=== PATIENT | male | born 1955 | race American Indian/Alaskan Native ===

== ENCOUNTER 2019-09-24 08:24 | Outpatient (CLI) | payer MEDICAID ==
--- NOTE | 2019-09-24 10:02 | Cat Scan Report ---
CT abdomen pelvis wo con INDICATION: MALIGNANT NEOPLASM PROSTATE. TECHNIQUE: All CT scans at this location are performed using the following dose modulation technique: Automated exposure control. Helical slices were obtained through the abdomen and pelvis. COMPARISON: None available. FINDINGS: Abdomen: There is mild atelectasis or scar in the right lung base. The liver, spleen, pancreas, adren al glands, and small bowel show no acute abnormality. There is a 14 mm cyst in the mid left kidney an d a 3.3 cm cyst in the mid right kidney. There are small retroperitoneal lymph nodes. These are not p athologically enlarged. The aorta is normal in diameter. Pelvis: The appendix is unremarkable. There is no obstruction or inflammation. There are iliac chain nodes are mildly prominent. There is a right external iliac chain node which measures 1 cm in the price rt axis. There is a distal right external iliac chain node which measures 16 mm. On review of bone windows, no acute osseous abnormalities are seen. IMPRESSION: 1. There are nonspecific right external iliac chain nodes. No suspicious osseous abnormalities are seen. There are simple cysts in the kidneys. Signer Name: Ramírez Styles MD Signed: 09/24/2019 9:57 AM Workstation Name: [id number]
--- NOTE | 2019-09-24 12:24 | Nuclear Medicine Report ---
NUCLEAR MEDICINE BONE SCAN, WHOLE BODY INDICATION: MALIGNANT NEOPLASM OF PROSTATE. TECHNIQUE: 25 mCi of Tc-99m MDP were injected IV. Whole body images were obtained. COMPARISON: CT abdomen pelvis without contrast performed the same day. FINDINGS: Skeletal Structures: Fairly symmetric, likely degenerative uptake is present involving the shoulders , wrists, spine and knees.. Skeletal Lesions: None. Soft Tissues: Normal. Kidneys: Normal, symmetric activity. Additional Findings: None. IMPRESSION: No evidence for osseous metastasis on bone scan.. Signer Name: Pankaj Aviles Jr, MD Signed: 09/24/2019 12:20 PM Workstation Name: [id number]
== END 2019-09-24 08:25 | disposition home or self-care (01) ==
LOC: NM 08:24
PROVIDERS: ATTEND Urology
DX: N28.1 Cyst of kidney, acquired (principal); N40.2 Nodular prostate without lower urinary tract symptoms; C61 Malignant neoplasm of prostate
CPT/HCPCS: 74176; 78306; A9503

== ENCOUNTER 2020-06-22 08:47 | Outpatient (CLI) | payer MEDICAID ==
--- NOTE | 2020-06-22 10:23 | Cat Scan Report ---
CT ABDOMEN AND PELVIS WITHOUT CONTRAST HISTORY: Prostate cancer COMPARISON: 09/24/2019 TECHNIQUE: Axial CT images were obtained through the abdomen and pelvis without IV contrast. Sagittal and coronal reformatted images. All CT scans at this location are performed using CT dose reduction for ALARA by means of automated exposure control. FINDINGS: CT ABDOMEN: Lung Bases: Clear. Liver: No significant abnormality. Biliary: No significant abnormality. Spleen: No significant abnormality. Unenlarged. Pancreas: No significant abnormality. Adrenals: No significant abnormality. Kidneys: Small simple appearing bilateral renal cysts appear stable. Lymphatics: No lymphadenopathy. Vasculature: No significant abnormality. Bowel/Peritoneum: No significant abnormality. No free air. No free fluid. Normal appendix. CT PELVIS: : No significant abnormality. Osseous Structures: No suspicious bony lesions are detected. Additional Findings: None IMPRESSION: No evidence for metastatic disease in the abdomen or pelvis. Stable findings since 09/24/2019. Signer Name: Pankaj Aviles Jr, MD Signed: 06/22/2020 10:19 AM Workstation Name: [id number]
--- NOTE | 2020-06-22 12:53 | Nuclear Medicine Report ---
NUCLEAR MEDICINE BONE SCAN, WHOLE BODY INDICATION: PROSTATE CANCER. TECHNIQUE: 25.5 mCi of Tc-99m MDP were injected IV. Whole body images were obtained. COMPARISON: CT abdomen and pelvis performed the same day. Bone scan dated 09/24/2019.. FINDINGS: Skeletal Structures: Fairly symmetric, likely degenerative uptake is present involving the shoulders , wrists and knees.. Skeletal Lesions: None. Soft Tissues: Normal. Kidneys: Normal, symmetric activity. Additional Findings: None. IMPRESSION: No evidence for osseous metastasis. Stable findings since 09/24/2019.. Signer Name: Pankaj Aviles Jr, MD Signed: 06/22/2020 12:48 PM Workstation Name: [id number]
== END 2020-06-22 08:48 | disposition home or self-care (01) ==
LOC: NM 08:47
PROVIDERS: ATTEND Internal Medicine Hematology & Oncology
DX: C90.00 Multiple myeloma not having achieved remission (principal); C90.31 Solitary plasmacytoma in remission; N28.1 Cyst of kidney, acquired
CPT/HCPCS: 74176; 78306; A9503

== ENCOUNTER 2020-08-08 06:43 | Outpatient (CLI) | payer MEDICAID ==
[2020-08-08] MEDS ORDERED: ONDANSETRON 4 MG/2 ML INJ IV ONE (07:20)
[2020-08-08] MEDS ORDERED: HYDROmorphone 1 MG/1 ML INJ IV ONE ×2 (07:21→10:01)
[2020-08-08 07:37] LABS: Basophils % (Auto) 0.6 % (0.0-1.8); Eosinophils # (Auto) 0.1 K/mm3 (0.0-0.4); Eosinophils % (Auto) 1.8 % (0.0-4.3); Hemoglobin 13.5 gm/dl (11.8-15.2); Lymphocytes # (Auto) 0.6 K/mm3 (1.2-5.4); Mean Corpuscular HGB Conc 35 % (32-34); Mean Corpuscular Volume 92 fl (84-94); Monocytes # (Auto) 0.8 K/mm3 (0.0-0.8); Monocytes % (Auto) 15.3 % (0.0-7.3); Platelet Count 191 K/mm3 (140-440); Red Blood Count 4.22 M/mm3 (3.65-5.03); Red Cell Distribution Width 12.3 % (13.2-15.2)
[2020-08-08 07:48] LABS: INR 0.97 (0.87-1.13)
[2020-08-08 07:49] LABS: Partial Thromboplastin Time 31.2 Sec. (24.2-36.6)
[2020-08-08] MEDS ORDERED: SODIUM CHLORIDE 0.9% 500 ML 500 ML IV SCH (08:00)
--- NOTE | 2020-08-08 10:34 | Cat Scan Report ---
CT-GUIDED BONE MARROW ASPIRATION AND BIOPSY INDICATION : Multiple myeloma PROCEDURE: The risks (including but not limited to bleeding and infection) and benefits were explain ed to the patient and informed consent was obtained. All CT examinations performed at this facility utilize dose modulation, iterative reconstruction or weight-based dosing, when appropriate, to reduce radiation dose to as low as reasonably achievable. A time out procedure was performed. The procedu re site was prepped and draped in the usual sterile fashion and lidocaine was used for local anesthes ia. Under CT guidance, the right posterior iliac wing was selected for biopsy. An 11 gauge needle was ad vanced to the posterior margin of the iliac wing, cortex breached, and 4.5 mL bone marrow aspirate ob tained. The needle was then advanced and a bone marrow biopsy was obtained measuring approximately 2 cm. Samples were given directly to the warehousing technician who was present during the exam. The patient tolerated the procedure well with no complications. IMPRESSION: Technically successful bone marrow aspirate and biopsy. Signer Name: Pankaj Aviles Jr, MD Signed: 08/08/2020 10:30 AM Workstation Name: [id number]
[2020-08-08 11:07] VITALS: BP 125/70
[2020-08-08 14:03] LABS: Large Platelets Few; Platelet Estimate Consistent w Auto; RBC Morphology Normal; Total Cells Counted 100
== END 2020-08-08 11:45 | disposition home or self-care (01) ==
LOC: CATHLABREC 06:43
PROVIDERS: ATTEND Internal Medicine Hematology & Oncology
DX: C90.00 Multiple myeloma not having achieved remission (principal); K21.9 Gastro-esophageal reflux disease without esophagitis; E11.9 Type 2 diabetes mellitus without complications; Z91.041 Radiographic dye allergy status; Z79.899 Other long term (current) drug therapy; Z79.4 Long term (current) use of insulin; Z87.891 Personal history of nicotine dependence; Z85.46 Personal history of malignant neoplasm of prostate; Z98.890 Other specified postprocedural states; Z83.3 Family history of diabetes mellitus
CPT/HCPCS: 36415; 38222; 77012; 85025; 85097; 85610; 85730; 88161; 88305; 88311; 88313; J1170; J2405; 38221; 85007; J7040

== ENCOUNTER 2021-09-26 15:03 | Outpatient (CLI) | payer MEDICARE ==
--- NOTE | 2021-09-26 18:20 | XRay Report ---
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 FINDINGS: BONES AND JOINTS: No suspicious lucent or lytic lesion. No other acute abnormality. There is mild cer vical and thoracic spondylosis. There is mild osteoarthritis of the hips and the right knee. SOFT TISSUES: No acute abnormality. ADDITIONAL FINDINGS: None. IMPRESSION: 1. No radiographic evidence of bone lesions concerning for malignancy. Signer Name: Hector Vásquez MD Signed: 09/26/2021 6:16 PM Workstation Name: [id number]
== END 2021-09-26 15:04 | disposition home or self-care (01) ==
LOC: XRAY 15:03
PROVIDERS: ATTEND Internal Medicine Hematology & Oncology
DX: C90.31 Solitary plasmacytoma in remission (principal); C90.00 Multiple myeloma not having achieved remission; M47.812 Spondylosis without myelopathy or radiculopathy, cervical region; M17.11 Unilateral primary osteoarthritis, right knee; M47.814 Spondylosis without myelopathy or radiculopathy, thoracic region; M16.0 Bilateral primary osteoarthritis of hip
CPT/HCPCS: 77074

== ENCOUNTER 2021-12-26 07:19 | Outpatient (CLI) | payer MEDICARE ==
[2021-12-26 10:03] LABS: Basophils % (Auto) 0.4 % (0.0-1.8); Eosinophils # (Auto) 0.1 K/mm3 (0.0-0.4); Eosinophils % (Auto) 1.9 % (0.0-4.3); Hemoglobin 13.2 gm/dl (11.8-15.2); Lymphocytes # (Auto) 0.8 K/mm3 (1.2-5.4); Lymphocytes % (Auto) 12.6 % (13.4-35.0); Mean Corpuscular HGB Conc 33 % (32-34); Mean Corpuscular Volume 93 fl (84-94); Monocytes # (Auto) 0.7 K/mm3 (0.0-0.8); Monocytes % (Auto) 11.3 % (0.0-7.3); Platelet Count 219 K/mm3 (140-440); Red Cell Distribution Width 12.7 % (13.2-15.2)
[2021-12-26 10:33] LABS: INR 0.96 (0.87-1.13)
[2021-12-26 10:34] LABS: Partial Thromboplastin Time 35.9 Sec. (24.2-36.6)
[2021-12-26 10:39] LABS: Alanine Aminotransferase 31 units/L (7-56); Albumin 4.2 g/dL (3.9-5); BUN/Creatinine Ratio 13; Blood Urea Nitrogen 10 mg/dL (9-20); Calcium 9.4 mg/dL (8.4-10.2); Hemolysis Index 11
[2021-12-26] MEDS ORDERED: ONDANSETRON 4 MG/2 ML INJ IV ONE (10:59)
[2021-12-26] MEDS ORDERED: HYDROmorphone 1 MG/1 ML INJ IV ONE (11:00)
[2021-12-26 13:58] VITALS: BP 113/57
--- NOTE | 2021-12-26 14:35 | Cat Scan Report ---
CT-GUIDED BONE MARROW ASPIRATION AND BIOPSY INDICATION / CLINICAL INFORMATION: Multiple Meyeloma. TECHNIQUE: All CT scans at this location are performed using CT dose reduction for ALARA by means of automated exposure control. COMPARISON: None available. PROCEDURE: The risks (including but not limited to bleeding and infection) and benefits were explained to the pa tient and informed consent was obtained. A time out procedure was performed. The procedure site was prepped and draped in the usual sterile fashion and lidocaine was used for local anesthesia. Under CT guidance, the right posterior iliac wing was selected for biopsy. An 11 gauge needle was ad vanced to the posterior margin of the iliac wing, cortex breached, and 10 cc bone marrow aspirate obt ained. The needle was then advanced, and a bone marrow biopsy was obtained measuring approximately 1 .5 cm. Samples were given directly to the psychiatric technician who was present during the exam. The patient tolerated the procedure well with no immediate complications. IMPRESSION: 1. Technically successful CT-guided bone marrow aspirate and biopsy. Signer Name: Dannie Devlin DO Signed: 12/26/2021 2:30 PM Workstation Name: [id number]
== END 2021-12-26 14:40 | disposition home or self-care (01) ==
LOC: CT 07:19 → CATHLABREC 07:19
PROVIDERS: ATTEND Internal Medicine Hematology & Oncology
DX: C90.00 Multiple myeloma not having achieved remission (principal); C61 Malignant neoplasm of prostate; I10 Essential (primary) hypertension; K21.9 Gastro-esophageal reflux disease without esophagitis; M19.90 Unspecified osteoarthritis, unspecified site; Z91.041 Radiographic dye allergy status; Z79.899 Other long term (current) drug therapy; Z79.4 Long term (current) use of insulin; Z98.890 Other specified postprocedural states; Z83.3 Family history of diabetes mellitus
CPT/HCPCS: 36415; 38222; 77012; 80053; 85025; 85097; 85610; 85730; 88161; 88305; 88311; J1170; J2405; 38221; 85007